=== PATIENT | male | born 1950 | race Caucasian/White ===

== ENCOUNTER 2017-03-15 13:46 | Observation (INO) ==
--- NOTE | 2017-03-15 13:59 | Emergency Department Note ---
Disposition Clinical Impression: COPD with acute exacerbation Ribs, multiple fractures Qualifiers: Encounter type: subsequent encounter Fracture type: closed Laterality: right Fracture healing: with routine healing Qualified Code(s): S22.41XD - Multiple fractures of ribs, right side, subsequent encounter for fracture with routine healing Disposition: Admitted As Inpatient Condition: Fair Referrals: Wilda Pennington MD [Primary Care Provider] - Forms: ED Satisfaction Letter Chest Pain HPI - General Chief Complaint: ED Upper Respiratory Infection Stated Complaint: broken ribs 3 weeks ago/ felt "pop" today Time Seen by Provider: 03/15/17 14:05 Source: family Mode of arrival: private vehicle Limitations: no limitations Vital Signs Reviewed: Yes Nursing Notes Reviewed: Yes - History of Present Illness HPI Narrative: Patient has been having difficulty with COPD exacerbation and right posterior rib fractures from coughing. He indicates he has been through a course of Augmentin and he finished that about 2 weeks ago. States he has also been on steroids for about 2 weeks. He was seen on March [address] performed of his chest demonstrating a nondisplaced sixth and seventh right posterior rib fractures and a displaced posterior eighth rib fracture. He states that he was "feeling good yesterday" but today he again had a coughing spell, a pop and increased pain in his right subscapular region. States he still has severe pain with cough or deep breath. Indicates he has some increasing shortness of breath from his usual and dyspnea on exertion. He desaturated to 88% on room air is moving about in the triage room. He denies any recent fall or injury. He has not had visible bruise, swelling or any crepitance. He states his cough is productive of green mucus. He is not having fevers, chills, weakness or dizziness. He was concerned for possible pneumonia and further rib fractures. Pt complaint: chest pain Onset (ago): week(s) Duration: intermittent Onset: other (After coughing) Pain Location: right chest (Subscapular) Severity: severe Severity scale (1-10): 10 Quality: sharp Pain Radiation: none Improves with: rest Worsens with: inspiration, palpation, movement Context: trauma/injury (Recent 6th through 8th rib fractures) Associated symptoms: Reports: dyspnea, cough. Denies: nausea, vomiting, diaphoresis, syncope, palpitations, fever, leg swelling - Related Data Home Medications Medication Instructions Recorded Confirmed Aspirin Enteric Coated [Aspirin EC] 81 mg PO DAILY 07/21/16 03/15/17 Simvastatin [Zocor] 80 mg PO DAILY 07/21/16 03/15/17 Albuterol Neb [Proventil Neb] 2.5 mg IH TID PRN 01/29/17 03/15/17 Albuterol Sulfate [Ventolin Hfa] 2 puff IH Q4H PRN 01/29/17 03/15/17 Isosorbide MONOnitrate (24 HR) 30 mg PO DAILY 01/29/17 03/15/17 [Imdur] OxyCODONE Immed Rel [Roxicodone 5 10 mg PO Q6HR PRN 03/15/17 03/15/17 MG] Allergies Allergy/AdvReac Type Severity Reaction Status Date / Time No Known Allergies Allergy Verified 01/29/17 06:30 All systems ED: reviewed and negative except as stated. Chest Pain PMH - Past Medical History Medical history: Reports: COPD, hyperlipidemia, hypertension, myocardial infarction, other Surgical history: Reports: other Psychiatric history: Reports: depression - Social History Smoking Status: Current every day smoker Alcohol use: Reports: none Drug use: Reports: none Physical Exam - General Limitations: no limitations General appearance: alert, in no apparent distress - Head Head exam: atraumatic, normocephalic, normal inspection - Eye Eye exam: Present: normal appearance, PERRL, EOMI. Absent: conjunctival injection - ENT ENT exam: normal exam, normal oropharynx, mucous membranes moist - Neck Neck exam: Present: normal inspection, full ROM, trachea midline. Absent: tenderness, lymphadenopathy - Chest Chest inspection: Present: normal inspection, symmetric chest wall rise, tenderness (Right subscapular without bruising, crepitance, rash or induration.) - Respiratory Respiratory exam: Present: wheezes, prolonged expiratory phase. Absent: respiratory distress - Cardiovascular Cardiovascular exam: Present: regular rate, normal rhythm, normal heart sounds. Absent: tachycardia - Abdominal Exam Abdominal exam: Present: soft, Non-Tender, normal bowel sounds. Absent: tenderness, distention, guarding, rebound, rigidity - Extremities Exam Extremities exam: Present: normal inspection, full ROM, normal capillary refill. Absent: tenderness, pedal edema, calf tenderness - Expanded Lower Extremity Exam Neurovascular/Tendon exam: Present: normal capillary refill. Absent: motor deficit, sensory deficit, tendon deficit Gait: observed and normal - Back Exam Back exam: Present: normal inspection, full ROM, tenderness (Right subscapular.) - Neurological Exam Neurological exam: Present: alert, oriented X3 - Psychiatric Psychiatric exam: Present: normal affect, normal mood - Skin Skin exam: Present: warm, dry, intact, normal color. Absent: rash, diaphoresis , pallor Course Course Narrative: 1430: Care has been discussed with the patient and his family and subsequently with Dr. Cristina. Providing his lab work returns without finding elevation of the troponin or other critical abnormality requiring transfer, Dr. Cristina is agreeable with his observation at this facility. We are awaiting return of laboratory results prior to coordinating his observation. 1540: All final results and discussed with Dr. Cristina. Orders have been obtained for this patient's observation. Vital Signs Temperature 98.0 F 03/15/17 13:50 Pulse Rate 58 03/15/17 13:50 Respiratory Rate 18 03/15/17 13:50 Blood Pressure 176/85 03/15/17 13:50 O2 Sat by Pulse Oximetry 93 03/15/17 13:50 Temperature 98.0 F 03/15/17 13:50 Pulse Rate 61 03/15/17 15:06 Respiratory Rate 18 03/15/17 15:06 Blood Pressure 136/74 03/15/17 15:06 O2 Sat by Pulse Oximetry 96 03/15/17 15:06 Oxygen Delivery Oxygen Delivery Nasal Cannula Chest Pain - Differential Diagnosis Likely: fracture of rib, pneumothorax (Pneumonia, COPD exacerbation), costalchondritis, chest pain - Medical Records Medical records reviewed: Yes I reviewed the patient's medical records. CT/CT chest wo con IMPRESSION: 1. Right posterior 6th through 8th rib fractures. There is small extrapleural hematoma with no pneumothorax or hemothorax. 2. 5 mm noncalcified right upper lobe pulmonary nodule D/ / Renan Rojo MD / Renan Rojo MD - Lab Data Lab results reviewed: Yes I reviewed the patient's lab results. Result diagrams: 03/15/17 14:51 03/15/17 14:51 Lab Results 03/15/17 03/15/17 03/15/17 Range/Units 14:51 14:51 14:51 WBC 6.0 (4.3-11.1) K/mcL RBC 4.77 (4.19-5.50) M/mcL Hgb 13.9 (12.9-16.9) g/dL Hct 42.6 (37.5-50.1) % MCV 89.3 (83.0-100.0) fL MCH 29.1 (28.0-33.3) pg MCHC 32.6 (31.6-35.5) g/dL RDW 13.6 (11.5-14.5) % Plt Count 249 (140-400) K/mcL MPV 8.8 L (9.4-12.4) fL Immature Gran % 0.5 (0-4) % Seg Neutrophils % 65.0 % Lymphocytes % 20.2 % Monocytes % 7.3 % Eosinophils % 6.5 % Basophils % 0.5 % Neutrophils # 3.9 (1.6-8.9) K/mcL Lymphocytes # 1.2 (0.6-4.6) K/mcL Monocytes # 0.4 (0.0-1.3) K/mcL Eosinophils # 0.4 (0.0-0.6) K/mcL Basophils # 0.0 (0.0-0.2) K/mcL Sodium 140 (136-145) mEq/L Potassium 4.2 (3.5-4.5) mEq/L Chloride 100 (98-109) mEq/L Carbon Dioxide 28 (19-29) mEq/L BUN 19 (8-26) mg/dL Creatinine 1.09 (0.72-1.25) mg/dL Est GFR ( Amer) > 60 (> 60) Est GFR (Non-Af Amer) > 60 (> 60) BUN/Creatinine Ratio 17 (6-26) Glucose 103 H (70-99) mg/dL Calculated Osmolality 293 (280-300) Lactic Acid 2.6 H (0.5-2.2) mmol/L Calcium 9.3 (8.6-10.8) mg/dL Troponin I (0-0.03) ng/mL 03/15/17 Range/Units 14:51 WBC (4.3-11.1) K/mcL RBC (4.19-5.50) M/mcL Hgb (12.9-16.9) g/dL Hct (37.5-50.1) % MCV (83.0-100.0) fL MCH (28.0-33.3) pg MCHC (31.6-35.5) g/dL RDW (11.5-14.5) % Plt Count (140-400) K/mcL MPV (9.4-12.4) fL Immature Gran % (0-4) % Seg Neutrophils % % Lymphocytes % % Monocytes % % Eosinophils % % Basophils % % Neutrophils # (1.6-8.9) K/mcL Lymphocytes # (0.6-4.6) K/mcL Monocytes # (0.0-1.3) K/mcL Eosinophils # (0.0-0.6) K/mcL Basophils # (0.0-0.2) K/mcL Sodium (136-145) mEq/L Potassium (3.5-4.5) mEq/L Chloride (98-109) mEq/L Carbon Dioxide (19-29) mEq/L BUN (8-26) mg/dL Creatinine (0.72-1.25) mg/dL Est GFR ( Amer) (> 60) Est GFR (Non-Af Amer) (> 60) BUN/Creatinine Ratio (6-26) Glucose (70-99) mg/dL Calculated Osmolality (280-300) Lactic Acid (0.5-2.2) mmol/L Calcium (8.6-10.8) mg/dL Troponin I 0.03 (0-0.03) ng/mL - Radiology Data Radiology results reviewed: Yes I reviewed the patient's radiology results. Single view chest x-ray is performed. This does not demonstrate evidence for infiltrate, effusion, pneumothorax, foreign body or heart failure. The cardiac silhouette is normal. The patient's 6 through eighth rib fractures are redemonstrated. There appears to now be mild displacement of the sixth and seventh ribs.. This is on my interpretation. Impressions Chest X-Ray 03/15/17 14:11 IMPRESSION: Mild atelectasis within the right lung base, otherwise no acute process. . D/ / Jacob Rucker MD / Jacob Rucker MD Interpreting Provider: Jacob Rucker MD Heart Score - Score History: Slightly Suspicious EKG: Non Specific repolarisation Disturbance Age: Greater than 65 Risk Factors: Equal/Greater than 3 risk factor or history of atherosclerotic disease
[2017-03-15] MEDS ORDERED: 0.9 % Sodium Chloride 1,000 ML IVC SCH ×3 (14:30→16:48)
[2017-03-15] MEDS ORDERED: Ipratropium/Albuterol Neb 3 ML IH ONE (14:30)
[2017-03-15] MEDS ORDERED: Azithromycin 500 MG in D5% in Water 250 ML IVPB ONE (14:30)
[2017-03-15] MEDS ORDERED: methylPREDNISolone 125 MG/2 ML VIAL IVP ONE (14:34)
[2017-03-15] MEDS ORDERED: Ketorolac 30 MG/ML VIAL IVP ONE (14:34)
[2017-03-15 15:02] LABS: Basophils % 0.5 %; Eosinophils # 0.4 K/mcL (0.0-0.6); Eosinophils % 6.5 %; Hematocrit 42.6 % (37.5-50.1); Hemoglobin 13.9 g/dL (12.9-16.9); Immature Granulocytes % 0.5 % (0-4); Lymphocytes # 1.2 K/mcL (0.6-4.6); Lymphocytes % 20.2 %; Mean Corpuscular HGB Conc 32.6 g/dL (31.6-35.5); Mean Corpuscular Hemoglobin 29.1 pg (28.0-33.3); Mean Corpuscular Volume 89.3 fL (83.0-100.0); Mean Platelet Volume 8.8 fL (9.4-12.4); Monocytes # 0.4 K/mcL (0.0-1.3); Monocytes % 7.3 %; Neutrophils # 3.9 K/mcL (1.6-8.9); Platelet Count 249 K/mcL (140-400); Red Blood Count 4.77 M/mcL (4.19-5.50); Red Cell Distribution Width 13.6 % (11.5-14.5)
[2017-03-15 15:15] LABS: BUN/Creatinine Ratio 17 (6-26); Blood Urea Nitrogen 19 mg/dL (8-26); Calcium 9.3 mg/dL (8.6-10.8); Carbon Dioxide 28 mEq/L (19-29); Chloride 100 mEq/L (98-109); Glucose 103 mg/dL (70-99); Osmolality,Calculated 293 (280-300); Potassium 4.2 mEq/L (3.5-4.5); Sodium 140 mEq/L (136-145); eGFR For African Americans > 60 (> 60); eGFR For Non-African Americans > 60 (> 60)
[2017-03-15] MEDS ORDERED: Naloxone 0.4 MG/ML INJ IVP PRN (16:48)
[2017-03-15] MEDS ORDERED: MOM Conc 10 ML UD.LIQ PO PRN (16:48)
[2017-03-15] MEDS ORDERED: Ondansetron 4 MG/2 ML VIAL IVP PRN (16:48)
[2017-03-15] MEDS ORDERED: *HR* OxyCODONE Immed Rel 5 MG TABLET PO PRN (16:48)
[2017-03-15] MEDS ORDERED: Ketorolac 30 MG/ML VIAL IVP PRN (16:48)
[2017-03-15] MEDS: Ipratropium/Albuterol Neb 3 ML IH SCH ×2 (17:45→21:55)
--- NOTE | 2017-03-15 18:42 | Internal Med History&Physical ---
Date of Encounter: 03/15/17 Time of Encounter: 18:00 Assessment and Plan (1) Hypoxemia Current visit: Yes Status: Acute Possibly multifactorial origin including underlying COPD with superimposed infection. He has been started on IV Rocephin with Zithromax. I will add lactobacillus. Repeat labs will be done in a.m. Room air oximetry will be checked in a.m. on a 6 minute walk. (2) Ribs, multiple fractures Current visit: Yes Status: Acute We will check vitamin D level and TSH. Will give scheduled and prn analgesics. Qualifiers: Encounter type: subsequent encounter Fracture type: closed Laterality: right Fracture healing: with routine healing Qualified Code(s): S22.41XD - Multiple fractures of ribs, right side, subsequent encounter for fracture with routine healing Internal Medicine - H&P: HPI Chief complaint: Cough and rib pain Admitted From: Home Plans for Post Hospital Care: Home History of present illness: Mr. Carroll is a 67 year old male who came to emergency room stating he had felt a "pop" sensation in his right posterior ribs following a severe coughing episode. He thought he might he had fractured additional ribs after having documented right posterior sixth through eighth rib fractures seen on [address] at a [facility] emergency room visit. Reported at that time he had a fall approximately 3 weeks earlier. He states today he had the original rib fractures simply from coughing. He reports he completed a 10 day course of antibiotics a few days ago. He states he is still coughing up green phlegm. He was evaluated in emergency room admitted to [facility] floor for ongoing care needs. Respiratory history is significant for having smoked since age 12 up to 1 pack per day. He has a diagnosis of COPD but does not use home oxygen. Past Med Surg Social Fam HX - Past Medical History Medical history: COPD, hyperlipidemia, hypertension, myocardial infarction, other Psychiatric history: depression - Past Surgical History Surgical History: other - Social History Smoking Status: Current every day smoker Smokeless Tobacco Status: No Alcohol use: none Drug use: none - Family History Mother Living Status: Hx Family Cardiac Disorders: Yes Internal Medicine - H&P: Meds Aspirin Enteric Coated [Aspirin EC] 81 mg PO DAILY 07/21/16 [History] Simvastatin [Zocor] 80 mg PO DAILY 07/21/16 [History] Albuterol Neb [Proventil Neb] 2.5 mg IH TID PRN 01/29/17 [History] Albuterol Sulfate [Ventolin Hfa] 2 puff IH Q4H PRN 01/29/17 [History] Isosorbide MONOnitrate (24 HR) [Imdur] 30 mg PO DAILY 01/29/17 [History] OxyCODONE Immed Rel [Roxicodone 5 MG] 10 mg PO Q6HR PRN 03/15/17 [History] 3 Allergy/AdvReac Type Severity Reaction Status Date / Time No Known Allergies Allergy Verified 01/29/17 06:30 All Systems PM: A 10-system review of systems was performed and is negative for pertinent findings except as documented above in the HPI. Review of systems: General: He states his weight has increased approximately 40 pounds in the past year due to decreased activity from back pain including back surgery in early January. Cardiovascular: He has history of hypertension. He has history of ASHD and states he had an MO in 1994. A heart catheter done at that time did not show significant stenoses requiring intervention. He reports a repeat heart catheter was done at [facility] a few years ago without intervention. He denies heart failure DVT or pulmonary embolus Respiratory: As per history of present illness GI: He denies disorders of his liver gallbladder or exocrine pancreas : He denies hematuria dysuria or kidney stones Neurologic: He denies large distribution strokes or seizures. Endocrine: He has hyperlipidemia but denies diabetes or thyroid disease Hematology/oncology: She denies blood disorders cancers or anemia Psychiatric: He denies anxiety depression or other mental health issues Musk skeletal: He had recent rib fractures as per above. He had surgery for lumbar stenosis 01/29/2017. He reports chronic back pain for approximately 18 months. He reports previous rib fractures 2 years ago and arm fracture in childhood. He denies other bone joint or muscle disorders. - Constitutional Vitals: Temp Pulse Resp BP Pulse Ox 97.7 F 55 22 138/74 94 03/15/17 16:52 03/15/17 16:52 03/15/17 16:52 03/15/17 16:52 03/15/17 16:52 Exam: Gen.: He is a well-developed well-nourished male who appears dyspneic at present time HEENT: Head is atraumatic and normocephalic. Eyes: EOMI. There is no scleral icterus. Mouth: Mucosa is moist. Neck: Supple and nontender. There is no thyromegaly or adenopathy noted. Heart: Regular without murmurs gallops or ectopics. Lungs: He has prolonged expiratory phase and a few scattered rhonchi and wheezes primarily in the right lung. There is no egophony Abdomen: There is nonspecific firmness to his abdomen. No masses or guarding are noted. Extremities: There is no cyanosis edema or clubbing noted. Dorsalis pedis and posttibial pulses are trace palpable bilaterally. Neurologic: Mental status: He is talkative and good historian. Cranial nerves: Smile is symmetric. Forehead wrinkles bilaterally. Tongue protrudes midline. EOMI. Motor: There is no pronator drift. Cerebellar: Finger to nose is intact bilaterally. Skin: Warm and dry.. Internal Med - H&P Results - Labs CBC & Chem 7: 03/15/17 14:51 03/15/17 14:51
[2017-03-15] MEDS: Albuterol 2.5 MG/3 ML NEBULIZER IH PRN (18:57)
[2017-03-15] MEDS: Acetaminophen 325 MG TABLET PO SCH (20:47)
[2017-03-15] MEDS: Lactobacillus 1 EACH CAP.SPRINK PO SCH (20:47)
[2017-03-15] MEDS: *HR* OxyCODONE Immed Rel 5 MG TABLET PO PRN (20:59)
[2017-03-16] MEDS ORDERED: MethylPREDNISolone 40 MG/ML VIAL IVP SCH
[2017-03-16] MEDS: Acetaminophen 325 MG TABLET PO SCH ×3 (00:37→08:24)
[2017-03-16] MEDS: *HR* OxyCODONE Immed Rel 5 MG TABLET PO PRN ×3 (00:53→09:35)
[2017-03-16] MEDS: Ipratropium/Albuterol Neb 3 ML IH SCH ×2 (04:21→14:00)
[2017-03-16 05:24] LABS: Hematocrit 40.3 % (37.5-50.1); Hemoglobin 13.3 g/dL (12.9-16.9); Immature Granulocytes % 0.6 % (0-4); Lymphocytes # 0.7 K/mcL (0.6-4.6); Lymphocytes % 13.1 %; Mean Corpuscular Hemoglobin 28.8 pg (28.0-33.3); Mean Corpuscular Volume 87.2 fL (83.0-100.0); Mean Platelet Volume 8.9 fL (9.4-12.4); Monocytes # 0.1 K/mcL (0.0-1.3); Monocytes % 1.1 %; Neutrophils # 4.5 K/mcL (1.6-8.9); Platelet Count 245 K/mcL (140-400); Red Blood Count 4.62 M/mcL (4.19-5.50); Red Cell Distribution Width 13.4 % (11.5-14.5); Segmented Neutrophils % 85.2 %
[2017-03-16 06:45] VITALS: BP 149/82
[2017-03-16] MEDS: Albuterol 2.5 MG/3 ML NEBULIZER IH PRN (07:37)
[2017-03-16] MEDS: Lactobacillus 1 EACH CAP.SPRINK PO SCH (08:24)
[2017-03-16] MEDS ORDERED: Isosorbide MONOnitrate (24 HR) 30 MG TAB.ER.24H PO SCH (09:00)
[2017-03-16] MEDS ORDERED: Azithromycin 500 MG in D5% in Water 250 ML IVPB SCH ×2 (09:00→15:00)
[2017-03-16] MEDS ORDERED: Aspirin Enteric Coated 81 MG Tablet PO SCH (09:00)
[2017-03-16] MEDS ORDERED: Nicotine 14 MG PATCH.TD24 TD SCH (09:21)
--- NOTE | 2017-03-16 09:56 | Discharge Summary ---
Date of Encounter: 03/16/17 Time of Encounter: 09:30 - Discharge Diagnosis (1) Hypoxemia Priority: Primary Status: Acute (2) Ribs, multiple fractures Priority: Secondary Status: Acute Qualifiers: Encounter type: subsequent encounter Fracture type: closed Laterality: right Fracture healing: with routine healing Qualified Code(s): S22.41XD - Multiple fractures of ribs, right side, subsequent encounter for fracture with routine healing - Discharge Medications Prescriptions: OxyCODONE/APAP 5/325 [Percocet 5/325 MG] 1 each PO Q4HR PRN #20 tablet PRN Reason: Pain Cefuroxime PO [Ceftin] 500 mg PO Q12HR #6 tablet Azithromycin [Zithromax] 250 mg PO DAILY #3 tablet Cholecalciferol (Vitamin D3) [Vitamin D] 1,000 unit PO DAILY #30 capsule Lactobacillus [Culturelle] 1 each PO BID #6 cap.sprink Home Medications: Aspirin Enteric Coated [Aspirin EC] 81 mg PO DAILY 07/21/16 [History] Simvastatin [Zocor] 80 mg PO DAILY 07/21/16 [History] Albuterol Neb [Proventil Neb] 2.5 mg IH TID PRN 01/29/17 [History] Albuterol Sulfate [Ventolin Hfa] 2 puff IH Q4H PRN 01/29/17 [History] Isosorbide MONOnitrate (24 HR) [Imdur] 30 mg PO DAILY 01/29/17 [History] OxyCODONE Immed Rel [Roxicodone 5 MG] 10 mg PO Q6HR PRN 03/15/17 [History] Azithromycin [Zithromax] 250 mg PO DAILY #3 tablet 03/16/17 [Rx] Cefuroxime PO [Ceftin] 500 mg PO Q12HR #6 tablet 03/16/17 [Rx] Cholecalciferol (Vitamin D3) [Vitamin D] 1,000 unit PO DAILY #30 capsule [Rx] Lactobacillus [Culturelle] 1 each PO BID #6 cap.sprink 03/16/17 [Rx] OxyCODONE/APAP 5/325 [Percocet 5/325 MG] 1 each PO Q4HR PRN #20 tablet 03/16/17 [Rx] Allergies/Adverse Reactions: 3 Allergy/AdvReac Type Severity Reaction Status Date / Time No Known Allergies Allergy Verified 01/29/17 06:30 Date of admission: 03/15/17 16:18 Primary care physician: Wilda Pennington Consults: 03/15/17 17:13 Consult to [facility] [CONS] Routine Reason for SW Consult: Discharge Planning - Patient Status Disposition: Home, Self-Care Condition: Fair Functional capacity at discharge: independent ambulation Overall status at discharge: patient is progressing back to baseline - Discharge Instructions Follow Up With: Wilda Pennington MD [Primary Care Provider] - 1 week - Diet and Activity Activity: resume usual activities as tolerated Diet: advance to your usual diet Hospital course: Mr. Carroll is a 67 year old male who came to emergency room stating he had felt a "pop" sensation in his right posterior ribs following a severe coughing episode. He thought he might he had fractured additional ribs after having documented right posterior sixth through eighth rib fractures seen on [address] at a [facility] emergency room visit. Reported at that time he had a fall approximately 3 weeks earlier. He states today he had the original rib fractures simply from coughing. He reports he completed a 10 day course of antibiotics a few days ago. He states he is still coughing up green phlegm. He was evaluated in emergency room admitted to [facility] for ongoing care needs. Initial orders were written by the emergency room physician. I saw him on March 15 and performed a history and physical. He was started on Rocephin and Zithromax with lactobacillus. Follow-up labs on March 16 showed WBC remaining normal at 5.3 with left shift on differential with segs 85.2%. He will continue with antibiotics and probiotics for 3 additional days at discharge. Vitamin D level returned low at 17. He will be given vitamin D 1000 international units daily at discharge. TSH was normal at 0.476. On March 16 he felt improved and stable for discharge home. Room-air oximetry will be checked on a 6 minute walk to see if home oxygen as needed. I encouraged him to discontinue smoking. He will follow with his PCP Dr. Pennington within 1 week. - Time Spent with Patient Total time spent providing and/or coordinating discharge services: - Constitutional Vitals: Temp Pulse Resp BP Pulse Ox 98.2 F 66 16 149/82 93 03/16/17 06:42 11/17/17 06:42 03/16/17 07:41 03/16/17 06:42 03/16/17 07:41
[2017-03-17] MEDS ORDERED: Nicotine 14 MG PATCH.TD24 TD SCH (09:00)
== END 2017-03-16 14:31 | disposition home or self-care (01) ==
LOC: EMEROOPIK 13:46 → INPPIK 13:46
PROVIDERS: ADMIT Internal Medicine; ATTEND Internal Medicine